=== PATIENT | female | born 1990 | race Caucasian/White ===

== ENCOUNTER 2017-08-06 10:56 | Emergency (ER) | payer OTHER, BC | END 2017-08-06 11:42 | disposition home or self-care (01) | LOC: SCSER 10:56 | DX: O99.511 Diseases of the respiratory system complicating pregnancy, first trimester (principal); J06.9 Acute upper respiratory infection, unspecified; J40 Bronchitis, not specified as acute or chronic; Z3A.15 15 weeks gestation of pregnancy | CPT/HCPCS: 99283 ==

== ENCOUNTER 2017-10-14 19:23 | Day surgery (SDC) | payer BC, OTHER ==
[2017-10-14 20:05] VITALS: BMI 35.6
[2017-10-14 20:55] LABS: Bilirubin Negative (Negative); Blood, Urine Large (Negative); Clarity CLEAR (Clear); Glucose, Urine (Dipstick) Negative (Negative); Leukocyte Negative (Negative); Nitrite Negative (Negative); Protein, Urine (Dipstick) Negative (Neg-Trace); Specific Gravity, Urine 1.005 (1.002-1.036); Urobilinogen 0.2 mg/dL (0.2-1.0); pH, Urine 6.5 (5.0-9.0)
[2017-10-14 21:05] LABS: Squamous Epithelial 0-3 HPF (0-3); WBC/HPF 0-3 HPF (0-3)
[2017-10-14 21:06] LABS: Bacteria/HPF None Seen HPF (None Seen); Hyaline Casts/LPF 0-3 HYALINE CAST LPF (0-3 Hyaline)
--- NOTE | 2017-10-14 22:46 | PRG ---
DATE OF SERVICE: 10/14/2017 PRIMARY FISHERIES SPECIALIST: Dr. Lalo Garcia. CHIEF COMPLAINT: Headache, high blood pressure at home and flank pain. HISTORY OF PRESENT ILLNESS: The patient is a 27-year-old G2, P1 female with an intrauterine pregnanc y at 25 weeks and a day, who was seen earlier today by her primary OB, Dr. Lalo Garcia and diagnosed with a UTI. The patient was sent home with Macrobid. After returning home, patient noticed that felix rockwell was having later in the afternoon headache with vision changes. Her mother checked her blood press ure and was noted to have a systolic blood pressure in the 170s. The patient then began having flank pain and came into the Labor and Delivery for evaluation. Prior to my visit with the patient, the p atient passed a kidney stone, which she was able to retrieve. After this event, the patient's abdomi nal and flank pain disappeared. She has no headaches or anymore headaches or vision changes at the t kim of my evaluation. The patient reports that she has had 5 kidney stones in her life that she had kidney stones in her last . PAST MEDICAL HISTORY: The patient has history of kidney stones, currently has a UTI, asthma as a chi ld, endometriosis, ovarian cysts, and ankylosing spondylitis. PAST SURGICAL HISTORY: D&C, LEEP procedure. SOCIAL HISTORY: Denies drug, alcohol or tobacco use. OB LABS: Unavailable at time of dictation. CURRENT MEDICATIONS: vitamins and Macrobid. ALLERGIES: No known drug allergies. REVIEW OF SYSTEMS: Denies at the time of evaluation, headache, chest pain, shortness of breath, naus ea, vomiting, diarrhea, constipation, vision changes, skin rash, vaginal bleeding, or leaking fluid. PHYSICAL EXAMINATION: VITAL SIGNS: Blood pressure is taken over the course of 2 hours were primarily in the 100s/60s. She had a blood pressure max of 138/85, noted to have at that time a heart rate 30 beats above the rest of her resting pulse during that rested 2 hours. Pulse in the 80s, respiratory rate 20, temperature 98.9. GENERAL: She appears to be in no acute distress. She is smiling and looks comfortable. HEAD: Normocephalic, atraumatic. LUNGS: Clear to auscultation bilaterally. HEART: Regular rate and rhythm. ABDOMEN: Soft, gravid, nontender to palpation. She has no CVA tenderness, no flank tenderness, no v ertebral tenderness to palpation. EXTREMITIES: Nontender, nonedematous. heart tracing performed for abdominal pain over the course of an hour. The patient was noted t o have baseline in the 140s with moderate long-term variability, appropriate for 25-week gestation. No contractions seen on the monitor. Kidney stone or UA was collected, cath UA collected and it was positive for blood with 11-20 red bloo d cells per high power field, negative for nitrites, negative for leukocyte esterase, negative for sq uamous cells, a kidney stone was collected upon urination and was sent to pathology for evaluation. ASSESSMENT AND PLAN: The patient is a 27-year-old female, who presented with elevated blood pressure s at home in the presence of headache and vision changes. The symptoms have not been present during her stay and blood pressures have been completely normal. Her flank pain did resolve when she passes kidney stone which she reports a history of this tones being sent to pathology for evaluation. Fetu s is reassuring for gestational age. I have spoken to Dr. Garcia about Ms. Ramirez and he has asked th at she come see him tomorrow. He can follow up with the composition of the kidney stone and make fur ther recommendations.
== END 2017-10-14 21:14 | disposition home or self-care (01) ==
LOC: L&D/OP 19:23
PROVIDERS: ATTEND Obstetrics & Gynecology
DX: O99.89 Other specified diseases and conditions complicating pregnancy, childbirth and the puerperium (principal); R51 Headache; R03.0 Elevated blood-pressure reading, without diagnosis of hypertension; O26.832 Pregnancy related renal disease, second trimester; N20.9 Urinary calculus, unspecified; O99.52 Diseases of the respiratory system complicating childbirth; J45.909 Unspecified asthma, uncomplicated; M45.9 Ankylosing spondylitis of unspecified sites in spine; O23.42 Unspecified infection of urinary tract in pregnancy, second trimester; Z3A.25 25 weeks gestation of pregnancy; Z79.2 Long term (current) use of antibiotics; Z79.899 Other long term (current) drug therapy; Z98.890 Other specified postprocedural states
CPT/HCPCS: 51701; 81001; 82365; 87480; 87510; 87660; 88300; 99284

== ENCOUNTER 2017-10-26 05:20 | Day surgery (SDC) | payer BC, OTHER ==
[2017-10-26 05:46] VITALS: BMI 35.2
[2017-10-26] MEDS ORDERED: Morphine 10 MG/ML VIAL SLOW IVP PRN (06:02)
[2017-10-26] MEDS ORDERED: Promethazine HCl 25 MG/ML VIAL IM/IV PRN (06:03)
--- NOTE | 2017-10-26 06:06 | PDOC.EVN ---
Event Note - Event Note Event Note: L&D Triage OBGYN Senior Test Engineer Note: Patient has arrived to triage with recurrent left flank pain. She was seen a few days ago and DX with posible left renal colic with spontaneous resolutio of pain at that time, and it was assumed that stome passed. SXs have recurred now. I have received the call from Renuka, the patient's RN, at [phone]. I have ordered a left renal sono with bladder jets, Morphine, Flomax, and IVFs. As I am with another patient on the funk, I will see her in a few minutes when this other patient's assessment is complete. D/W Jie, charge account authorizer.
--- NOTE | 2017-10-26 06:08 | PDOC.EVN ---
Event Note - Event Note Event Note: @0605: No current evidence of labor, tracing ok but hard to read as patient moving in bed.
[2017-10-26] MEDS ORDERED: Morphine 10 MG/ML VIAL ONE (06:09)
[2017-10-26] MEDS ORDERED: Lactated Ringer's 1,000 ML IV SCH ×2 (06:15)
[2017-10-26] MEDS ORDERED: Tamsulosin HCl 0.4 MG CAP PO SCH (06:15)
--- NOTE | 2017-10-26 06:52 | PDOC.LDHP ---
Labor and Delivery H&P Chief complaint: other (Renal colic on left. The patient has a long history of passing kidney staones with last episode on 10/14 with stone passage.) HPI: Patient has been seen in triage by me (@4199): H&P written at 0650: She is in Triage B. She is a 27 yo W at 26 weeks 6 days with a long HX of renal stones. She passed a stone here at the hospital on 10/14 with pain resolution. There was no evidence of infection or PTL at that time. She returns now with increased pelvic pain and renal colic sxs on left. No Vag Bleed, no contractions, no LOF, no fever. No dysuria but she does have hematuria. She sees Dr Garcia for PNC. She self took Flomax which she had at home (taken before this arrival). Review of Systems: Complete ROS done. Findings per HPI. Social HX: Negative for ETOH, drug use, tobacco. Current gestational age (weeks): 26 (6 days) Dating criteria: last menstrual period Grav: 2 Para: 1 Current complications: other (Kidney stones) Current medications: other (Flomax x1) Allergies/Adverse Reactions: Allergies Allergy/AdvReac Type Severity Reaction Status Date / Time No Known Allergies Allergy Verified 10/26/17 05:42 - Physical Exam Vital signs reviewed and normal: yes General: NAD, other (Patient in moderate discomfort due to left pain) Heart: RRR Lungs: CTAB Abdomen: gravid Extremeties: no edema FHT: category 1 [place] contractions every: no contractions - Assessment Renal Colic in second trimester (26-27 weeks) - Plan Plan: observation in L&D (We will: 1. Order left renal sono with bladder jets. Sono was not ordered last visit but we will do so now. Sono likely not ordered then as she passed the stone. 2. IVF hydrate 3. Morhine and Demeral alternating 4. Phenergan prn Cervical exam deferred as no HX PTL and no contractions. Classic sxs of renal colic with past HX of stones. Cervical exam deferred to avoid patient discomfort. We notify Radha of patient's status this AM. Await sono results. Comfort care for renal colic.)
[2017-10-26] MEDS ORDERED: Meperidine HCl/PF 25 MG/ML VIAL SLOW IVP SCH (07:00)
--- NOTE | 2017-10-26 07:13 | PDOC.EVN ---
Event Note - Event Note Event Note: @0710: DR Garcia notified of patient arrival. I was informed Dr Mas covering this weekend, if admit needed.
--- NOTE | 2017-10-26 07:44 | PDOC.EVN ---
Event Note - Event Note Event Note: RASHAD informal report @0659: no obstruction seen. No stone seen.
--- NOTE | 2017-10-26 09:28 | ULT ---
ULTRASOUND BILATERAL RENAL STANDARD: HISTORY: Renal stone. FINDINGS: The right kidney 11.6 x 4.7 x 4.9 cm. The left kidney measures 14.4 x 5.6 x 6.5 cm. Prevoid urinary bladder volume is 11 mL. There is mild left-sided hydronephrosis. IMPRESSION: Mild left-sided hydronephrosis and left-sided renomegaly may be sequelae of distal obstructing calcul us. Patient did have renal stones on a 2015 CT examination. POS: [facility]
--- NOTE | 2017-10-26 09:48 | SS ---
DATE OF CONSULTATION: 10/26/2017 TRIAGE NOTE ATTENDING PHYSICIAN: Lalo Garcia M.D. EVALUATING PHYSICIAN: Renzo Hinds M.D. HISTORY OF PRESENT ILLNESS: Ms. James Mcclain is a 27-year-old white G2, P1-0-0-1, now at 27 weeks who had been evaluated earlier this morning by Dr. Roy with a known history of renal stones. She p resented with renal colic. Evaluation here demonstrated an ultrasound that showed no evidence of obs truction. She has received 2 liters of IV fluid and some Flomax along with some Demerol and she feel s much better. PHYSICAL EXAMINATION: Her abdomen is soft and nontender. heart tones are stable. There are n o contractions. ASSESSMENT: 1. A 27-week intrauterine . 2. Known history of renal stones, renal colic, now improved. 3. No evidence of labor. PLAN: At this time, she will be discharged home. She has pain medicine at home and she has also bee n given Flomax that she also has at home. I did discuss the evaluation with Dr. Myriam Mas who a lso agrees with discharge at this time. She has been given complete discharge instructions and retur n for fever, chills, or worsening pain.
== END 2017-10-26 09:10 | disposition home or self-care (01) ==
LOC: L&D/OP 05:20
PROVIDERS: ATTEND Obstetrics & Gynecology
DX: O26.832 Pregnancy related renal disease, second trimester (principal); N13.2 Hydronephrosis with renal and ureteral calculous obstruction; Z79.899 Other long term (current) drug therapy; Z3A.27 27 weeks gestation of pregnancy
CPT/HCPCS: 76770; 96360; 96361; 96375; 99282; J2175; J2270; J2550

== ENCOUNTER 2017-11-18 00:31 | Observation (INO) | payer BC, OTHER ==
[2017-11-18 01:09] VITALS: BMI 36.3
[2017-11-18] MEDS ORDERED: Promethazine HCl 25 MG/ML VIAL IM PRN ×2 (01:29→05:49)
[2017-11-18 01:38] LABS: Bilirubin Negative (Negative); Blood, Urine Large (Negative); Clarity CLEAR (Clear); Glucose, Urine (Dipstick) Negative (Negative); Leukocyte Negative (Negative); Nitrite Negative (Negative); Protein, Urine (Dipstick) Negative (Neg-Trace); Specific Gravity, Urine 1.005 (1.002-1.036); Urobilinogen 0.2 mg/dL (0.2-1.0); pH, Urine 6.5 (5.0-9.0)
--- NOTE | 2017-11-18 01:39 | PDOC.LDHP ---
Labor and Delivery H&P Chief complaint: other (kidney stone) HPI: 27 y/o at 30w1d, patient of Dr. Garcia, presents with a left sided kidney stone. She reports this is her 5th kidney stone. The pain started around 9:30 and is a 10/10. She has already taken flomax tonight and Tylenol 3 , which has not improved her symptoms. OB History Details: 1st at term Past Medical History: kidney stones Current medications: pre- vitamins, other (flomax, tylenol #3) Previous surgical history: dilation and curettage, other (ovarian cystectomy) Allergies/Adverse Reactions: Allergies Allergy/AdvReac Type Severity Reaction Status Date / Time No Known Allergies Allergy Verified 10/26/17 05:42 Social history: none - Physical Exam Vital signs reviewed and normal: yes General: NAD, other (appears uncomfortable) Lungs: nonlabored breathing Abdomen: gravid Extremeties: no edema FHT: category 1 (120s, mod variability, + accels, no decels) [place] contractions every: none - Assessment 27 y/o at 30w1d with renal colic and history of kidney stones. status reassuring. Renal ultrasound pending. - Plan -: Given Demerol and Phenergan for pain control. Continue monitoring. Awaiting results of renal ultrasound.
[2017-11-18 01:42] LABS: Hyaline Casts/LPF 0-3 HYALINE CAST LPF (0-3 Hyaline)
[2017-11-18 01:53] LABS: Bacteria/HPF None Seen HPF (None Seen); RBC/HPF 0-3 HPF (0-3); Squamous Epithelial 0-3 HPF (0-3); WBC/HPF 0-3 HPF (0-3)
[2017-11-18] MEDS ORDERED: Lactated Ringer's 1,000 ML IV SCH (04:00)
--- NOTE | 2017-11-18 05:37 | PDOC.EVN ---
Event Note - Event Note Event Note: Continued need for pain control. IV started and stadol ordered. Since we are still awaiting results for ultrasound, will place on obs for pain control. Will notify Dr. Garcia.
[2017-11-18] MEDS ORDERED: Ondansetron HCl/PF 4 MG/2 ML Vial IVP PRN (05:49)
[2017-11-18] MEDS: Lactated Ringer's 1,000 ML IV SCH ×3 (06:08→23:55)
--- NOTE | 2017-11-18 08:45 | ULT ---
PRELIMINARY REPORT/[facility]/EMERGENTY AFTER-HOURS PROCEDURE US Retroperitoneal Complete EXAM DATE/TIME: Exam ordered 11/18/2017 2:09 AM CLINICAL HISTORY: 27 years old, female; Pain; Other: Lt flank pain, HX of renal stones; TECHNIQUE: Real-time ultrasound of the retroperitoneum (complete) with image documentation. COMPARISON: No relevant prior studies available. FINDINGS: Aorta: No aneurysm. Common iliac arteries: No aneurysm. Inferior vena cava: Unremarkable. Right kidney: Unremarkable. No stones. No solid mass. No hydronephrosis. Left kidney: Mild left hydronephrosis. No stones. Bladder: Right ureteral jet present. Left ureteral jet not visualized. IMPRESSION: Mild left hydronephrosis with no visible left ureteral jet. Thank you for allowing us to participate in the care of your patient. Dictated and Authenticated by: Manuelito Page MD 11/18/2017 4:08 AM Central Time ([place] & [place]) FINAL REPORT ULTRASOUND RENAL BILATERAL STANDARD: Date: 11/18/17 HISTORY: Kidney stone. COMPARISON: Ultrasound dated 10/26/17. FINDINGS/IMPRESSION: Findings and impression are concordant with the preliminary report by Jimbo. Findings concerning for p ossible obstructive uropathy on the left, for which CT recommended. POS: [facility]
--- NOTE | 2017-11-18 09:17 | PRG ---
DATE OF SERVICE: 11/18/2017 TIME OF SERVICE. 0900 The patient is resting comfortably now. She reports that her pain level is a 4/10. She has no nause a or vomiting. Reports an active fetus. Vital signs are stable. LABORATORY DATA: Urinalysis was reviewed with large blood, no CBC or base met have been ordered. Th ender have been ordered to compared to previous lab work. RADIOLOGY: Ultrasound revealed mild left hydronephrosis with no visible left ureteral jet. IMPRESSION: The patient with known history of nephrolithiasis in . Urinalysis consistent w ith nephrolithiasis. Pain is significantly improved with hydration and analgesics. Ultrasound seems somewhat contradictory with only mild hydronephrosis, which could be physiologic with , but in the absence of a ureteral jet. Suspect that absence is likely technique based. PLAN: We will transfer the patient to the floor. Continue IV fluids. Plan repeat ultrasound for ur eteral jets later and will consult Dr. Angelica See of Urology for recommendations. Daily NSTs as t he patient is 30 weeks gestation. We will follow up CBC and base met results.
[2017-11-18 09:48] LABS: #Eosinphils 0.1 thou/uL (0.0-0.7); #Lymphocytes 1.4 thou/uL (1.20-3.40); #Monocytes 0.4 thou/uL (0.11-0.59); #Neutrophils 7.1 thou/uL (1.40-6.50); %Basophils 0.1 % (0.0-1.0); %Eosinophils 1.3 % (0.0-10.0); %Lymphocytes 15.9 % (21.0-51.0); %Neutrophils 78.8 % (42.0-75.0); Hemoglobin 10.1 g/dL (12.0-16.0); Mean Corpuscular Hemoglobin 30.3 pg (27.0-31.0); Mean Corpuscular Volume 89.1 fl (81.0-99.0); Mean Platelet Volume 6.6 fL (7.4-10.4); Platelet Count 271 thou/uL (130-400); RBC Distribution Width 12.3 % (11.5-14.5); Red Blood Cell (RBC) Count 3.34 mill/uL (4.20-5.40); White Blood Cell (WBC) Count 9.1 thou/uL (4.8-10.8)
[2017-11-18 10:09] LABS: Anion Gap 13 mmol/L (10-20); BUN (Urea Nitrogen) 9 mg/dL (7.0-18.7); Calc. Creatinine Clearance 189 mL/min (70-130); Calcium 8.9 mg/dL (7.8-10.44); Carbon Dioxide 23 mmol/L (22-29); Chloride 105 mmol/L (98-107); Estimated GFR-MDRD Greater than 90; Glucose 93 mg/dL (70-105); Potassium 4.3 mmol/L (3.5-5.1); Sodium 137 mmol/L (136-145)
[2017-11-18] MEDS ORDERED: Tamsulosin HCl 0.4 MG CAP PO SCH (10:15)
--- NOTE | 2017-11-18 13:50 | CT ---
CT ABDOMEN AND PELVIS WITHOUT CONTRAST: HISTORY: A 27-year-old female with left-sided renal colic and hydronephrosis on recent ultrasound. L eft-sided flank pain. FINDINGS: Comparison is made with the exam of 07/03/15. Correlation is made with the renal ultrasound from [facility] today. Absence of oral and IV contrast reduces the sensitivity of the exam, particularly for evaluation of s olid organs involved. There are mild dependent changes in the lung bases. No free air or free fluid is seen in the abdomen or pelvis. An intrauterine fetus is present. No calcified gallstones are identified. Bilateral renal calculi are seen. No right-side hydroureteral nephrosis is noted. No calculi are se en in the right ureter or the urinary bladder. There is left-sided hydronephrosis secondary to a 3 m m calculus in the left distal ureter. IMPRESSION: 1. A 3 mm left distal ureteric calculus with ipsilateral hydroureteral nephrosis. 2. Bilateral renal calculi. POS: [facility]
--- NOTE | 2017-11-18 13:51 | CON ---
DATE OF CONSULTATION: 11/18/2017 REASON FOR CONSULTATION: A consultation was requested for concern for ureteral stone with renal coli c and . HISTORY OF PRESENT ILLNESS: The patient is a 27-year-old female who was admitted overnight with charles powers colic. She has been having that off and on during and feels like she passed 5 different stone just during this and passed 8-9 on her own previously. She has noticed gross hematur ia once or twice a week in the last month. She has never seen a urologist. She has never had to hav e surgery for stones. PAST MEDICAL HISTORY: Otherwise, healthy. PAST SURGICAL HISTORY: None other than her [employer], which includes 1 vaginal delivery, 1 D&C and 1 ov elvira cystectomy leaving an ovary in place. MEDICATIONS: Flomax when she needs it, Tylenol 3 and vitamin. ALLERGIES: None. SOCIAL HISTORY: She used to be a social smoker. She has not smoked during . She does not drink. She does not use other drugs. REVIEW OF SYSTEMS: Reveals positive nausea and vomiting, but no fever, chills, only when she vomits, diarrhea which is new since and occurring off and on. No chest pain, no shortness of karen th and no cough. FAMILY HISTORY: Her mother and father are alive and healthy. Mom might have passed a stone, but has never been diagnosed with 1 definitively and there are no cancers. PHYSICAL EXAMINATION: GENERAL: She is comfortable in the bed without any distress. VITAL SIGNS: T-max 98.9, heart rate 82, blood pressure 126/75, satting 96% on room air with respirat ory rate of 17. CARDIOVASCULAR: Regular rate and rhythm. No murmurs, gallops or rubs. LUNGS: Clear to auscultation bilaterally. ABDOMEN: Soft and gravid. There was left costovertebral angle tenderness, but none on the right. T here was no abdominal tenderness. EXTREMITIES: She had no significant lower extremity edema. LABORATORY DATA: CBC reveals anemia of 10.1 and 29.8, but no white count. BUN and creatinine are 9 and 0.65. Urinalysis revealed 0-3 WBCs, 0-3 RBCs, no bacteria and 0-3 squamous. Renal ultrasound re viewed personally from 11/18/2017 revealed mild left hydronephrosis without a ureteral jet noted in t he bladder. She had no hydro on the right and there was a ureteral jet noted from the right. There were no obvious stones or masses. ASSESSMENT AND PLAN: We have a 27-year-old female with renal colic consistent with stone, but 30 wee ks as well. We discussed how any intervention can increase her chance for labor, bu t we also discussed how multiple bouts of renal colic and pain can also do this, so depending on the size and location of the stone, it might be best to place a stent prophylactically until term and pos sibly induce her at term for definitive stone therapy thereafter. However, if the stone is small, es pecially if it is distal then it may be best if she is tolerating liquids and her pain is adequately controlled to allow her spontaneous passage without any intervention. I reviewed how the only way to tell about the size of the stone is with a CAT scan and that the benef its outweigh the risks at this time. She was agreeable to this. We will order a plain CT scan and d etermine our course of action based on those results and her clinical status.
[2017-11-18] MEDS: Tamsulosin HCl 0.4 MG CAP PO SCH (14:56)
--- NOTE | 2017-11-19 06:49 | PRG ---
DATE OF SERVICE: 11/19/2017 PHYSICAL EXAMINATION: VITAL SIGNS: Temperature 98.2, pulse 81, blood pressure 112/57, respirations 18, pulse ox 98%. The patient reports that her pain is somewhat better at times; however, she is requiring analgesics a nd has shooting pains at times. She reports an active fetus. CT scan reveals 3 mm left distal renal calculi with hydronephrosis. IMPRESSION: A 3 mm left distal ureteral calculi with bilateral renal calculi. PLAN: Dr. See is going to reassess the patient later today, may consider repeating CT scan. Gaby burger her recommendations for treatment. Plan of care discussed with Dr. Garcia.
[2017-11-19] MEDS: Lactated Ringer's 1,000 ML IV SCH ×2 (09:23→17:25)
--- NOTE | 2017-11-19 09:23 | PRG ---
DATE OF SERVICE: 11/19/2017 SUBJECTIVE: The patient did well overnight; however, she did require 4 doses of IV pain medicine bet ween 8 and 1:00 a.m. hours. We discussed how the oral pain medicine does not help her. The pain garcia s seem to have gotten a little bit more anterior and in the suprapubic area as opposed to the back. She has had no significant nausea or vomiting. OBJECTIVE: Her vitals have been stable. She has had good urine output. Her abdomen is gravid with mild tenderness in the left lower quadrant. We had a long discussion related to her CT scan which from the day prior 11/18/2017 showed 6-7 right flex, 4 left flex with a 2 mm mid to lower pole stone as well as a 3-4 mm in width and 5-6 mm in luz th distal ureteral stone approximately 3 cm from the bladder with mild hydro. I had already discusse d this with her the day before and how we would opt to monitor and consider a stent if she has worsen ing clinical condition. Today we discussed the possibility of percutaneous nephrostomy tube as well as ureteroscopy which I think at this point based on how distal it is would be safe and the stent cou ld be left for only a 2-3 day period as opposed to indefinitely until her baby delivers. Based on th e small size and distal location, I think it is also reasonable to continue tamsulosin and supportive care today and allow another 24 hours for spontaneous passage. We discussed straining her urine. ASSESSMENT AND PLAN: We have a 27-year-old female 30 weeks with a distal small stone that w e will give another day of trial of passage. If she does not pass it then I would plan for ureterosc opy given the distal location and ultimately plan to be able to extract the stone and therefore leave the stent for only a temporary period. We reviewed all of this in detail and will just monitor toda y. She can eat and drink.
[2017-11-19] MEDS: Prenatal Vitamin 1 TAB PO SCH (09:24)
[2017-11-19] MEDS: Tamsulosin HCl 0.4 MG CAP PO SCH (09:24)
[2017-11-19] MEDS: Promethazine HCl 25 MG/ML VIAL IM/IV PRN ×2 (11:11→21:59)
[2017-11-20] MEDS: Lactated Ringer's 1,000 ML IV SCH ×3 (01:53→16:01)
[2017-11-20] MEDS: Promethazine HCl 25 MG/ML VIAL IM/IV PRN (04:19)
--- NOTE | 2017-11-20 07:50 | PRG ---
DATE OF SERVICE: 11/20/2017 PRIMARY OB: Dr. Lalo Garcia. SUBJECTIVE: Patient is a 27-year-old female with an intrauterine at 30 weeks and 2 days or 3 days with a known history of renal colic and kidney stones. Patient has been passing multiple sto antonino during this . Patient was admitted for pain control, as this stone has not passed on it s own. This morning, patient reports that she continues to have a lot of pressure and sharp pain and does not feel like it is passed yet. Patient is waiting Urology this morning who has preliminary pl ans to take her to the operating room for removal of this distal stone and placement of stent if she does not spontaneously pass the stone. Patient denies any uterine contractions at this time. Fetus has baseline in the 150s with moderate long-term variability, positive accelerations, no deceleration s. ASSESSMENT AND PLAN: Patient is a 27-year-old female with a repeat kidney stones and pain, awaiting Urology recommendations this morning. In the meantime, we will continue pain control as inpatient.
[2017-11-20] MEDS: Prenatal Vitamin 1 TAB PO SCH (08:48)
[2017-11-20] MEDS: Tamsulosin HCl 0.4 MG CAP PO SCH (08:49)
[2017-11-20] MEDS ORDERED: Fentanyl 100 MCG/2 ML VIAL ONE ×3 (11:54→13:52)
[2017-11-20] MEDS ORDERED: Midazolam HCl 2 mg/2 ml Vial ONE (12:04)
[2017-11-20] MEDS ORDERED: PROPOFOL 200 MG/20 ML VIAL ONE (12:25)
[2017-11-20] MEDS ORDERED: Lidocaine 1% PF 5 ML VIAL ONE (12:25)
[2017-11-20] MEDS ORDERED: Succinylcholine Chloride 20 MG/ML 10 ml SYRINGE FS ONE (12:25)
[2017-11-20] MEDS ORDERED: Glycopyrrolate 0.2 MG/ML 5 ML SYRINGE ONE (12:25)
[2017-11-20] MEDS ORDERED: Dexamethasone 20 MG/5 ML VIAL ONE (12:25)
[2017-11-20] MEDS ORDERED: Iothalamate Meglumine 60% 50 ML VIAL FS ONE (12:47)
[2017-11-20] MEDS ORDERED: Ondansetron ODT 8 MG TAB ONE (13:26)
[2017-11-20] MEDS ORDERED: Promethazine HCl 25 MG/ML VIAL SLOW IVP PRN (13:28)
[2017-11-20] MEDS ORDERED: Promethazine HCl 25 MG/ML VIAL IM PRN (13:28)
--- NOTE | 2017-11-20 13:54 | PDOC.EVN ---
Event Note - Event Note Event Note: I was just notified by Dr barron that Mrs Ramirez has had her stent and urology has cleared her for discharge. She is still in recovery awaiting transfer back to [facility]. Dr Garcia has been notified by me and he jhas asked to discharge her home with followup with him in 48 hours. I will assess her after her arrival to 3 .
--- NOTE | 2017-11-20 14:16 | RAD ---
RETROGRADE UROGRAM: 11/20/2017 HISTORY: Retrograde stent placement. FINDINGS: A single intraoperative fluoroscopic image of the left abdomen and pelvis is submitted for interpreta tion. There is evidence of an intrauterine gestation in breech presentation. A left ureteral stent is noted in place with the proximal portion overlying the left renal pelvis and the distal portion ov erlying the expected location of the urinary bladder. Contrast is seen in the left renal collecting system. IMPRESSION: 1. Single intrauterine gestation. 2. Left ureteral stent in place on single provided image. 3. Correlation with intraoperative findings is recommended. TOTAL FLUOROSCOPY TIME: 0.2 minutes TOTAL DOSE: 7 mGy POS: [facility]
[2017-11-20 14:30] VITALS: TEMP 98.6
--- NOTE | 2017-11-20 15:48 | PDOC.EVN ---
Event Note - Event Note Event Note: DISCHARGE NOTE (OBGYN) Admit date: 11/18/17 Discharge date: 11/20/17 DX: Third trimester Ureteral obsrtuction EGA: 30 weeks- 31 weeks ObGyn: Radha Procedure: Stent placement by Urology with stone removal s/p lithotripsy Patient seen at bedside on 11/20/17 after procedure. No evidence ROM or labor. Patient able to tolerate po. She has tylenol #3 at home. vcase reviewed with her ObGyn (Radha). He will see her in 48 hrs (Saturday) at 9AM. Urology will remove stent in office on Saturday or next Saturday. Ptient ok with discharge home. Urology has cleared her for discharge as well. As she is clinically stable, we will discharge home.
[2017-11-20] MEDS ORDERED: Acetaminophen/Codeine 30-300mg Tablet PO PRN (15:51)
[2017-11-20 17:28] VITALS: BP 114/59
--- NOTE | 2017-11-21 01:09 | OP ---
DATE OF PROCEDURE: 11/20/2017 PREOPERATIVE DIAGNOSIS: Left distal ureteral stone. POSTOPERATIVE DIAGNOSIS: Left distal ureteral stone. PROCEDURES: Cystoscopy, left ureteroscopy, left retrograde pyelogram, holmium laser lithotripsy, stone basketing, stent placement 6 x 28. SURGEON: Roseanne See MD ANESTHESIA: General, endotracheal tube. FINDINGS: Distal stone, which had not migrated significantly from the recent CAT scan noted, fragmented, and removed entirely. SPECIMENS: Urine from the left renal pelvis and stone. COMPLICATIONS: None. BLOOD LOSS: None. DRAINS: Drain remaining was a 6 x 28 double-J with a string. INDICATIONS: The patient is a 27-year-old, 30-week female who was admitted with renal colic and an ultrasound showing hydronephrosis without a jet in the bladder. Her colic did not improve, so a CT scan was ordered, which revealed a distal small stone. I continued tamsulosin and hydration for another 24 hours, but she still required IV pain medicine and had not passed the stone, so we elected to attempt to remove the stone as opposed to placing an indwelling stent until her was over versus a percutaneous nephrostomy tube based on the size and location of the stone itself. DESCRIPTION OF PROCEDURE: The patient was brought into the room by Anesthesia, laid on the table in supine position, and then with a wedge under her right hip and back, so that there was less pressure directly on the IVC. Then, her legs were placed in the lithotomy position and her perineum was prepped and draped in sterile fashion using a 21-Gibraltarian cystoscope. The ureter was traversed and the bladder inspected. It was found to be without lesions. Left ureteral orifice was identified and did not look significantly edematous or inflamed. For both reasons of wanting to minimize fluoroscopy and not to allow the stone to migrate more anteriorly, I did not initially do a retrograde, but I intubated the ureter with a wire and allowed the Pollack catheter to follow this. I did notice some resistance with the wire in the distal ureter, presumably where the stone was, but was able to continue to push the wire more proximally and then allow the Pollack catheter to follow it. Again, resistance was noted with the Pollack catheter going by the stone, and then ultimately when resistance was reached with the wire presumably in the renal pelvis, the Pollack catheter was fully advanced as well and then the wire was removed. Hydronephrotic drip was noted. Approximately 13 mL of clear yellow urine was extracted, confirming that we were in the renal pelvis and this was sent for culture, and leaving the wire in place, the Pollack catheter was removed and the ureteral orifice was dilated with dilating balloon to a maximum pressure of 12 mmHg. Again, I did not fluoro to identify a distended balloon, but just used visualization from the bladder. Then, this was taken down and the dilation balloon was removed leaving the wire in place. Prior to that, a minimal amount of fluoro had been used to identify the length of the stent needed before the end of the case and a 28 x 6 double-J was chosen for this. At this point, the scope was broken apart, bladder drained, and removed carefully leaving the wire in place, which was coiled near the urethral meatus. The rigid ureteroscope was used to enter the bladder and into the ureter itself up to the level of the distal ureter approximately 5-7 cm from the orifice, so similar to where the stone had been found on CT, it was encountered. Holmium laser lithotripsy was used to fragment the stone into 3 pieces that did look as though they would be removed with ease. At this point, the laser was removed and a stone basket was obtained and was able to grab two of the pieces longitudinally and removed them at one time. The ureteroscope went back up and noted one larger piece that I passed and continued to go proximally to ensure that there was nothing more at the level of where the stone had been. I went above that level to ensure no migration and there was nothing concerning noted, so I carefully retracted the ureteroscope to the level of the remaining fragment, which was then grasped and brought out through the urethral meatus. Having ensured that the rest of the ureter was cleared, the wire was back fed over the cystoscope and a 6 x 28 double-J stent was placed over a wire in order to minimize fluoroscopy, but ensure that this stent coiled appropriately. A small amount of fluoroscopy was used to ensure that there was a good coil in the renal pelvis. Cystoscopy visualized a good coil in the bladder and then the scope was broken apart, the bladder drained, and removed in its entirety carefully given there was a string still intact on the stent, and this was secured to the patient's mons pubis. The patient tolerated the procedure well and was awakened and transferred to the PACU in stable condition, where heart tones were monitored and found to be similar to what they were preop. ROSMERY
== END 2017-11-20 18:08 | disposition home or self-care (01) ==
LOC: ERS 00:31 → L&D/OP 00:43 → L&D 06:12 → 3SW 09:58
PROVIDERS: ADMIT Obstetrics & Gynecology; ATTEND Obstetrics & Gynecology
PROC: 0TF78ZZ Fragmentation in Left Ureter, Via Natural or Artificial Opening Endoscopic (ICD-10-PCS; principal; 2017-11-20)
PROC: 0T778DZ Dilation of Left Ureter with Intraluminal Device, Via Natural or Artificial Opening Endoscopic (ICD-10-PCS; 2017-11-20)
PROC: 0TC78ZZ Extirpation of Matter from Left Ureter, Via Natural or Artificial Opening Endoscopic (ICD-10-PCS; 2017-11-20)
PROC: BT1F1ZZ Fluoroscopy of Left Kidney, Ureter and Bladder using Low Osmolar Contrast (ICD-10-PCS; 2017-11-20)
DX: O99.89 Other specified diseases and conditions complicating pregnancy, childbirth and the puerperium (principal); N13.2 Hydronephrosis with renal and ureteral calculous obstruction; Z3A.30 30 weeks gestation of pregnancy; Z87.442 Personal history of urinary calculi; Z87.891 Personal history of nicotine dependence; Z79.899 Other long term (current) drug therapy
CPT/HCPCS: 36415; 74176; 74420; 76770; 80048; 81001; 82365; 85025; 87070; 87205; 88300; 96361; 96374; 96375; 96376; 99285; A4216; C1758; G0378; J0595; J1100; J2001; J2175; J2250; J2550; J2704; J3010; Q9961

== ENCOUNTER 2017-12-19 21:34 | Day surgery (SDC) | payer BC, OTHER ==
[2017-12-19 22:19] VITALS: BMI 36.9
--- NOTE | 2017-12-20 00:47 | PRG ---
DATE OF SERVICE: 12/19/2017 OB ER ENCOUNTER PRIMARY CIO: Lalo Garcia MD CHIEF COMPLAINT: Elevated blood pressures. HISTORY OF PRESENT ILLNESS: The patient is a 27-year-old, G2, P1 female with an intrauterine pregnan cy at 34 weeks, who is presenting to labor and delivery after obtaining elevated blood pressures at [facility]. She has several blood pressure cuffs at home and her mom this evening had taken her blood press ure, which had gotten as high as 170 systolic, but was ranging in the 140s to 170s. The patient repo rts she has been having some dizziness and some nausea. She denies headache. She denies chest pain. She denies shortness of breath. She denies diarrhea, vomiting, constipation. Denies new rashes. Denies abdominal pain. Denies hip or knee problems. Denies leg problems or muscle weakness. Denies vaginal bleeding or leakage of fluid. Denies urinary urgency or frequency. PAST MEDICAL HISTORY: Significant for abnormal Pap with history of a LEEP and a D&C, nephrolithiasis , and polycystic ovarian syndrome. PAST SURGICAL HISTORY: She has had a D&C, a LEEP procedure, diagnostic laparoscopy with cyst removal , and a colposcopy. The patient recently had a cystoscopy with lithotripsy and stent placement with subsequent removal. MEDICATIONS: vitamins. ALLERGIES: No known drug allergies. SOCIAL HISTORY: Denies drug, alcohol, or tobacco use. OBSTETRIC LABS: Blood type is A positive. Antibody screen is negative. She is rubella immune. RPR is nonreactive. GC and chlamydia negative. Hepatitis B surface antigen is nonreactive. HIV is non reactive. Her one-hour Glucola is 112. Her quad screen is negative. REVIEW OF SYSTEMS: Per HPI. PHYSICAL EXAMINATION: VITAL SIGNS: Blood pressure has been running in the 110s up to 130s/60s to 70s, heart rates in the 8 0s-90s, respiratory rate 18-20, saturating 100% on room air, temperature 99. GENERAL: She appears to be in no acute distress. She is alert, oriented, cooperative, and pleasant to interact with. HEENT: Normocephalic, atraumatic. LUNGS: Clear to auscultation bilaterally. HEART: Regular rate and rhythm. ABDOMEN: Soft, nontender to palpation. EXTREMITIES: Nontender. Has symmetrical edema, minimal. GENITOURINARY: Has been deferred. ASSESSMENT AND PLAN: The patient is a 27-year-old, G2, P1 female with an intrauterine at 3 4 weeks, presenting with reported elevated blood pressures. We have not been able to reproduce them here during our monitoring. After about an hour, the patient has requested to be discharged home. W luli would recommend that she stay for at least a couple hours from the time of presentation to see for blood pressure spike again. The patient has been given precautions and reports that she will return if her pressures are elevated once again. The patient has followup with Dr. Garcia this coming Saturday . Fetus has a reactive NST, category tracing 1.
== END 2017-12-19 23:20 | disposition home or self-care (01) ==
LOC: L&D/OP 21:34
PROVIDERS: ATTEND Obstetrics & Gynecology
DX: O99.89 Other specified diseases and conditions complicating pregnancy, childbirth and the puerperium (principal); R03.0 Elevated blood-pressure reading, without diagnosis of hypertension; Z3A.34 34 weeks gestation of pregnancy
CPT/HCPCS: 99282

== ENCOUNTER 2018-01-06 15:27 | Day surgery (SDC) | payer BC, OTHER ==
[2018-01-06 16:12] VITALS: BMI 36.8
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
== END 2018-01-06 17:23 | disposition home or self-care (01) ==
LOC: L&D/OP 15:27
PROVIDERS: ATTEND Obstetrics & Gynecology
DX: O9A.213 Injury, poisoning and certain other consequences of external causes complicating pregnancy, third trimester (principal); Z3A.37 37 weeks gestation of pregnancy; V89.2XXA Person injured in unspecified motor-vehicle accident, traffic, initial encounter
CPT/HCPCS: 59025; 99282

== ENCOUNTER 2018-01-09 09:28 | Inpatient (IN) | payer BC, OTHER ==
[2018-01-09] MEDS ORDERED: DISCONTINUE ALL PREVIOUS NARCOTICS FS SCH (09:45)
[2018-01-09] MEDS ORDERED: Ondansetron HCl/PF 4 MG/2 ML Vial IVP PRN ×3 (09:45→23:00)
[2018-01-09] MEDS ORDERED: Promethazine HCl 25 MG/ML VIAL IM PRN ×2 (09:45→09:47)
[2018-01-09] MEDS ORDERED: Lidocaine 1% (PF) 30 ML VIAL SC PRN ×2 (09:45→09:47)
[2018-01-09] MEDS ORDERED: Misoprostol 200 MCG TAB PR PRN (09:47)
[2018-01-09] MEDS ORDERED: HYDROcodone/Acetaminophen 5/325 mg Tablet PO PRN ×4 (09:47→23:00)
[2018-01-09] MEDS ORDERED: Docusate 100 MG CAP PO PRN (09:47)
[2018-01-09] MEDS ORDERED: Ibuprofen 800 MG TAB PO PRN (09:47)
[2018-01-09] MEDS ORDERED: Zolpidem Tartrate 5 MG TAB PO PRN (09:47)
[2018-01-09] MEDS ORDERED: Diphenoxylate HCl/Atropine Tablet PO PRN ×2 (09:47)
[2018-01-09] MEDS ORDERED: Acetaminophen 500 MG TAB PO PRN (09:47)
[2018-01-09] MEDS ORDERED: Penicillin G Potassium 5 MILL.UNITS in Sodium Chloride 0.9% 100 ML IVPB SCH (10:00)
[2018-01-09 10:01] VITALS: BMI 37.1
[2018-01-09] MEDS: Lactated Ringer's 1,000 ML IV SCH ×2 (10:04→11:32)
[2018-01-09 10:18] LABS: Hemoglobin 11.5 g/dL (12.0-16.0); Mean Corpuscular Hemoglobin 29.2 pg (27.0-31.0); Mean Corpuscular Volume 85.9 fl (81.0-99.0); Platelet Count 285 thou/uL (130-400); RBC Distribution Width 12.2 % (11.5-14.5); Red Blood Cell (RBC) Count 3.95 mill/uL (4.20-5.40); White Blood Cell (WBC) Count 7.9 thou/uL (4.8-10.8)
[2018-01-09 11:00] LABS: HBSAg Index 0.15 S/CO (0-0.99); Hep B Surf Ag Non-Reactive S/CO (NonReactive)
[2018-01-09 11:17] LABS: Syphilis Antibody Nonreactive (Nonreactive); Syphilis Antibody Index 0.02 S/CO (<1.00 Non-Reactive)
[2018-01-09] MEDS: Bupivacaine 0.75% 13.4 ML, fentaNYL Citrate/PF 400 MCG in Sodium Chloride 0.9% 78.6 ML EPIDURAL SCH ×2 (11:32→17:54)
[2018-01-09] MEDS ORDERED: ePHEDrine/0.9% NaCl/PF SYRINGE 50 mg/10 ml SLOW IVP PRN (11:49)
[2018-01-09] MEDS ORDERED: Acetaminophen 325 MG TAB PO PRN (11:49)
[2018-01-09] MEDS ORDERED: Eucerin (Mineral Oil/Petrolatum,White) 30 gm Jar TOP PRN (11:49)
[2018-01-09] MEDS ORDERED: Naloxone HCl 0.4 mg/ml Vial IVP PRN ×2 (11:49)
[2018-01-09] MEDS ORDERED: Lactated Ringer's 500 ML IV PRN (11:49)
[2018-01-09] MEDS ORDERED: Fentanyl 4mcg/Marcaine 0.1% Cassette 100 ML EPIDURAL SCH (12:00)
[2018-01-09] MEDS ORDERED: Communication Order-Pharmacy FS SCH (12:00)
[2018-01-09] MEDS: Penicillin G 2.5 MILL.units 2.5 MILL.UNITS in Premix Bag 1 BAG IVPB SCH (14:30)
[2018-01-09] MEDS ORDERED: Lidocaine 1% (PF) 30 ML VIAL ONE (16:18)
[2018-01-09] MEDS: NS / Oxytocin 40 units/1000ml 1,000 ML IV PRN ×2 (18:15→21:52)
[2018-01-09] MEDS ORDERED: Ibuprofen 800 MG TAB PO SCH (22:45)
[2018-01-09] MEDS ORDERED: Adacel (T-DAP) 0.5 ML VIAL IM SCH (23:00)
[2018-01-09] MEDS ORDERED: NS / Oxytocin 40 units/1000ml 1,000 ML IV SCH (23:00)
[2018-01-09] MEDS ORDERED: Bisacodyl 10 MG SUPP PR PRN (23:00)
[2018-01-09] MEDS ORDERED: Sodium Chloride 0.9% 1,000 ML IV SCH (23:00)
[2018-01-09] MEDS ORDERED: Milk Of Magnesia 30 ML UDCUP PO PRN (23:00)
[2018-01-10] MEDS: Penicillin G 2.5 MILL.units 2.5 MILL.UNITS in Premix Bag 1 BAG IVPB SCH (01:57)
[2018-01-10] MEDS: Ibuprofen 800 MG TAB PO SCH ×3 (06:21→21:26)
[2018-01-10] MEDS: Ferrous Sulfate 325 MG TAB PO SCH ×2 (09:02→18:12)
[2018-01-10] MEDS: Prenatal Vitamin 1 TAB PO SCH (09:02)
[2018-01-10] MEDS: Docusate Calcium (SURFAK) 240 MG CAP PO SCH ×2 (09:33→21:26)
[2018-01-10] MEDS ORDERED: Bupivacaine/Epinephrine 0.25% 30 ML VIAL ONE (15:40)
[2018-01-11 04:32] VITALS: TEMP 97.9
[2018-01-11 05:22] LABS: Hemoglobin 10.2 g/dL (12.0-16.0)
[2018-01-11] MEDS: Ibuprofen 800 MG TAB PO SCH (05:47)
[2018-01-11 07:49] VITALS: BP 140/72
[2018-01-11] MEDS: Ferrous Sulfate 325 MG TAB PO SCH (10:08)
[2018-01-11] MEDS: Docusate Calcium (SURFAK) 240 MG CAP PO SCH (10:09)
[2018-01-11] MEDS: Prenatal Vitamin 1 TAB PO SCH (10:09)
== END 2018-01-11 13:49 | disposition home or self-care (01) | DRG 775 ==
LOC: L&D 09:28 → 3SW 22:03
PROVIDERS: ADMIT Obstetrics & Gynecology; ATTEND Obstetrics & Gynecology
PROC: 10E0XZZ Delivery of Products of Conception, External Approach (ICD-10-PCS; principal; 2018-01-09)
PROC: 0KQM0ZZ Repair Perineum Muscle, Open Approach (ICD-10-PCS; 2018-01-09)
DX: O99.824 Streptococcus B carrier state complicating childbirth (principal); O70.1 Second degree perineal laceration during delivery; Z37.0 Single live birth; Z3A.37 37 weeks gestation of pregnancy
CPT/HCPCS: 36415; 51702; 85014; 85018; 85027; 86780; 86850; 86900; 86901; 87340; A4216; J2001; J2540; J3010; J7050

== ENCOUNTER 2018-10-25 15:50 | Emergency (ER) | payer BC, OTHER | END 2018-10-25 17:01 | disposition home or self-care (01) | LOC: SCSER 15:50 | DX: M54.2 Cervicalgia (principal) | CPT/HCPCS: 99283 ==

== ENCOUNTER 2021-07-13 10:40 | Day surgery (SDC) | payer OTHER, BC ==
[2021-07-13 11:12] VITALS: BP 172/79; TEMP 97.9
[2021-07-13] MEDS ORDERED: Acetaminophen 500 MG TAB PO PRN ×2 (11:18)
[2021-07-13] MEDS ORDERED: diphenhydrAMINE 50 MG/ML VIAL IVP PRN (11:18)
[2021-07-13] MEDS ORDERED: INFLIXIMAB-ABDA 486 MG in Sodium Chloride 0.9% 250 ML 201.4 ML IVPB SCH (11:30)
[2021-07-13] MEDS ORDERED: Sodium Chloride 0.9% 1,000 ML IV SCH (11:30)
== END 2021-07-13 14:52 | disposition home or self-care (01) ==
LOC: ONC/OP 10:40
PROVIDERS: ATTEND Internal Medicine Rheumatology
DX: L40.50 Arthropathic psoriasis, unspecified (principal)
CPT/HCPCS: 96413; 96415; J7050; Q5104

== ENCOUNTER 2022-08-08 13:14 | Emergency (ER) | payer SELFPAY ==
[2022-08-08] MEDS ORDERED: Morphine 4 MG/ML VIAL ONE (14:07)
[2022-08-08] MEDS ORDERED: Diazepam 5 MG TAB ONE (14:12)
[2022-08-08 15:12] LABS: Bilirubin Negative (Negative); Blood, Urine Negative (Negative); Clarity Clear (Clear); Glucose, Urine (Dipstick) Normal (Negative); Ketone, Urine Negative (Negative); Leukocyte Negative Leu/uL (Negative); Nitrite Negative (Negative); Protein, Urine (Dipstick) Negative (Neg-Trace); Specific Gravity, Urine 1.021 (1.002-1.036); Urobilinogen Normal mg/dL (Less than 2)
== END 2022-08-08 15:44 | disposition home or self-care (01) ==
LOC: ERS 13:14
DX: M54.41 Lumbago with sciatica, right side (principal); W19.XXXA Unspecified fall, initial encounter
CPT/HCPCS: 72131; 72170; 81003; 96372; J2270